=== PATIENT | male | born 1955 | race Two or more races ===

== ENCOUNTER → 2019-05-13 | Emergency (ER) | payer OTHER ==
[~2019-05-13] VITALS: Ht 160 cm; Wt 76.7 kg
[~2019-05-13] MED LIST: SIMVASTATIN
== END | disposition home or self-care (01) ==
LOC: ER 05:47
DX: S00.33XA Contusion of nose, initial encounter (principal); W22.8XXA Striking against or struck by other objects, initial encounter; Y93.89 Activity, other specified; Y92.89 Other specified places as the place of occurrence of the external cause; Y99.8 Other external cause status

== ENCOUNTER 2022-04-16 05:02 | Emergency (ER) | payer OTHER ==
[~2022-04-16] VITALS: Ht 160 cm; Wt 78.9 kg
[2022-04-16] MEDS ORDERED: ALTACE5 MG PO (05:43)
== END 2022-04-16 08:16 | disposition home or self-care (01) ==
LOC: ER 05:02
DX: U07.1 COVID-19 (principal); I10 Essential (primary) hypertension

== ENCOUNTER 2024-01-16 07:06 | Emergency (ER) | payer OTHER ==
[~2024-01-16] VITALS: Ht 165.1 cm; Wt 75.7 kg
[~2024-01-16 07:06] MED LIST changes: +ALTACE5 MG PO
== END 2024-01-16 11:07 | disposition home or self-care (01) ==
LOC: ER 07:06
DX: J06.9 Acute upper respiratory infection, unspecified (principal); Z20.822 Contact with and (suspected) exposure to COVID-19